=== PATIENT | female | born 1990 | race African-American/Black ===

== ENCOUNTER 2019-03-28 06:02 | Day surgery (SDC) | payer OTHER ==
[2019-03-28] MEDS ORDERED: FENTAnyl 50 MCG/ML VIAL (08:24)
[2019-03-28] MEDS ORDERED: MIDAZOLAM 1 MG/ML 2 ML INJ ×3 (08:24)
== END 2019-03-28 10:00 | disposition home or self-care (01) ==
LOC: GIL 06:02
DX: K44.9 Diaphragmatic hernia without obstruction or gangrene (principal); K21.9 Gastro-esophageal reflux disease without esophagitis
CPT/HCPCS: 43239; 84703; 88305; 88312